=== PATIENT | male | born 1965 | race American Indian/Alaskan Native ===

== ENCOUNTER 2018-09-02 18:52 | Emergency (ER) | payer OTHER ==
[2018-09-02 19:15] VITALS: RESP 18; TEMP 98
--- NOTE | 2018-09-02 20:58 | ED PDOC ---
Arrival/HPI - General Chief Complaint: Trauma Time Seen by Provider: 09/02/18 19:22 Historian: Patient - History of Present Illness Narrative History of Present Illness (Text): 09/02/18 21:03 52 year old male, with no significant past medical history, presents to the emergency department complaining of lower back and right knee discomfort. Patient states he accidentally slipped yesterday, falling onto his back. Patient also informs hitting his right knee during the fall. Patient is able to ambulate without difficulty. Patient denies any leg weakness. Patient denies any other injury. Patient denies any urinary or bowel changes, abdominal pain, nausea, vomiting, diarrhea, headache, dizziness, chest pain, shortness of breath, or any other complaint. Time/Duration: 24 hours Symptom Onset: Sudden Symptom Course: Unchanged Quality: Aching Activities at Onset: Light Context: Walking Past Medical History - Provider Review Nursing Documentation Reviewed: Yes - Infectious Disease Hx of Infectious Diseases: None - Cardiac Hx Cardiac Disorders: Yes Hx Hypertension: Yes - Pulmonary Hx Respiratory Disorders: No - Renal Hx Renal Disorder: No - Endocrine/Metabolic Hx Endocrine Disorders: No - Genitourinary/Gynecological Hx Genitourinary Disorders: No - Psychiatric Hx Psychophysiologic Disorder: No Hx Substance Use: No - Anesthesia Hx Anesthesia: No Family/Social History - Physician Review Nursing Documentation Reviewed: Yes Family/Social History: No Known Family HX Smoking Status: Current Some Days Smoker Hx Alcohol Use: Yes Frequency of alcohol use: Socially Hx Substance Use: No Allergies/Home Meds Allergies/Adverse Reactions: Allergies No Known Allergies Allergy (Verified 09/02/18 19:15) Review of Systems - Physician Review All systems were reviewed & negative as marked: Yes - Review of Systems Respiratory: absent: SOB Cardiovascular: absent: Chest Pain Gastrointestinal: absent: Abdominal Pain, Diarrhea, Nausea, Vomiting Genitourinary Male: Normal. absent: Urinary Output Changes Musculoskeletal: Arthralgias (Right knee), Back Pain Neurological: absent: Headache, Dizziness Physical Exam Vital Signs Reviewed: Yes Vital Signs Temp Pulse Resp BP Pulse Ox 09/02/18 19:11 98 F 90 18 150/80 97 Temperature: Afebrile Blood Pressure: Normal Pulse: Regular Respiratory Rate: Normal Appearance: Positive for: Well-Appearing, Non-Toxic, Comfortable Pain Distress: None Mental Status: Positive for: Alert and Oriented X 3 - Systems Exam Head: Present: Atraumatic, Normocephalic Pupils: Present: PERRL Extroacular Muscles: Present: EOMI Conjunctiva: Present: Normal Mouth: Present: Moist Mucous Membranes Neck: Present: Normal Range of Motion Respiratory/Chest: Present: Clear to Auscultation, Good Air Exchange. No: Res piratory Distress, Accessory Muscle Use Cardiovascular: Present: Regular Rate and Rhythm, Normal S1, S2. No: Murmurs Abdomen: No: Tenderness, Distention, Peritoneal Signs Back: Present: Paraspinal Tenderness (Minimal paralumbar tenderness and spasm). No: Midline Tenderness (No dorsal spinal tenderness) Upper Extremity: Present: Normal Inspection. No: Cyanosis, Edema Lower Extremity: Present: Normal Inspection, Tenderness (Minimal tenderness on palpation to knee anteriorly). No: Edema, Swelling, Deformity Neurological: Present: GCS=15, CN II-XII Intact, Speech Normal Skin: Present: Warm, Dry, Normal Color. No: Rashes Psychiatric: Present: Alert, Oriented x 3, Normal Insight, Normal Concentration Medical Decision Making ED Course and Treatment: 09/02/18 21:31 Impression: 52 year old male presents with back and knee pain Plan: -- Flexeril -- Motrin -- X-ray right knee -- X-ray LS Spine -- Reassess and disposition Prior Visits: Notes and results from previous visits were reviewed Progress Notes: - RAD Interpretation Radiology Orders: 09/02/18 19:38 LS SPINE WITH OBL > 18 YRS OLD [RAD] Stat 09/02/18 19:39 KNEE W PATELLA RIGHT 3 VIEW [RAD] Stat - Medication Orders Current Medication Orders: Discontinued Medications Cyclobenzaprine HCl (Flexeril) 10 mg PO ONCE ONE Stop: 09/02/18 19:41 Last Admin: 09/02/18 19:51 Dose: 10 mg Ibuprofen (Motrin Tab) 600 mg PO STAT STA Stop: 09/02/18 19:41 Last Admin: 09/02/18 19:51 Dose: 600 mg MAR Pain/Vitals Document 09/02/18 19:51 JOL (Rec: 09/02/18 19:51 JOL [id number]) Pain Reassessment Is This A Pain ReAssessment? No Sleep Is patient sleeping during reassessment? No Presence of Pain Presence of Pain Yes - Scribe Statement The provider has reviewed the documentation as recorded by the Scribe Peter James Provider Scribe Attestation: All medical record entries made by the Scribe were at my direction and personally dictated by me. I have reviewed the chart and agree that the record accurately reflects my personal performance of the history, physical exam, medical decision making, and the department course for this patient. I have also personally directed, reviewed, and agree with the discharge instructions and disposition. Disposition/Present on Arrival - Present on Arrival Any Indicators Present on Arrival: No History of DVT/PE: No History of Uncontrolled Diabetes: No Urinary Catheter: No History of Decub. Ulcer: No History Surgical Site Infection Following: None - Disposition Have Diagnosis and Disposition been Completed?: Yes Diagnosis: Low back strain, Muscle spasm, Knee contusion Disposition: HOME/ ROUTINE Disposition Time: 20:59 Patient Plan: Discharge Patient Problems: Current Active Problems Problem Status Onset Knee contusion Acute Low back strain Acute Muscle spasm Acute Condition: STABLE Discharge Instructions (ExitCare): Muscle Spasms (DC), Lumbar Muscle Strain (DC), Contusion (DC) Additional Instructions: Rest/no strenuous physical activity/meds as prescribed/follow up with your doctor this week Prescriptions: Cyclobenzaprine [Cyclobenzaprine HCl] 10 mg PO TID PRN #15 tab PRN Reason: Muscle Spasm Ibuprofen [Motrin] 600 mg PO Q8 PRN #16 tab PRN Reason: Pain, Moderate (4-7) Referrals: PCP,NO [Primary Care Provider] - Follow up with primary Forms: [employer] ([place])
[2018-09-02 21:32] VITALS: BP 132/78; PULSE 82; O2SAT 98
--- NOTE | 2018-09-03 08:03 | RAD ---
Date of service: 09/02/2018 PROCEDURE: Right Knee Radiographs. HISTORY: injury COMPARISON: None. FINDINGS: BONES: Mild joint space narrowing seen in all 3 joint compartments with limited articular cortical sclerosis compatible with osteoarthritis. No acute fracture or dislocation identified. No destructive bony lesion identified. Small suprapatellar bursa effusion is identified. JOINTS: As above. JOINT EFFUSION: As above. OTHER FINDINGS: None. IMPRESSION: Mild osteoarthritis. Small suprapatellar bursa effusion. No acute fracture or dislocation identified.
--- NOTE | 2018-09-03 08:05 | RAD ---
Date of service: 09/02/2018 PROCEDURE: Radiographs of the Lumbar Spine. HISTORY: injury/fall COMPARISON: No prior. FINDINGS: BONES: Normal alignment. No listhesis. No fracture. DISC SPACES: [id number] multilevel lumbar spondylosis seen worst at L3-4. Spondylosis is anterior with no definite posterior osteophytes appreciable radiographically. Normal vertebral body and disc interspace heights noted. No spondylolysis. Advanced facet degenerative changes L5-S1 bilaterally. OTHER FINDINGS: None. IMPRESSION: [id number] multilevel lumbar spondylosis without fracture or spondylolisthesis appreciated. Advanced facet joint degenerative changes L5-S1 bilaterally.
== END 2018-09-02 21:05 | disposition home or self-care (01) ==
LOC: ED 18:52
DX: S39.012A Strain of muscle, fascia and tendon of lower back, initial encounter (principal); S80.01XA Contusion of right knee, initial encounter; W01.0XXA Fall on same level from slipping, tripping and stumbling without subsequent striking against object, initial encounter; I10 Essential (primary) hypertension